=== PATIENT | female | born 1970 | race African-American/Black ===

== ENCOUNTER 2016-11-03 08:25 | Day surgery (SDC) | payer OTHER ==
[~2016-11-03] VITALS: Ht 172.7 cm; Wt 87.2 kg
[~2016-11-03 08:25] MED LIST: ALPRAZOLAM0.25 M2 PO; ALPRAZOLAM0.25 MG PO; AMBIEN10 MG PO; ASPIR-LOW81 MG PO; ASPIR-TRIN325 M1 PO; ASPIRIN81 M1 PO; BENICAR20 MG PO; CATAPRES0.1 MG PO; CLONIDINE HCL0.1 MG PO; DETROL LA4 MG PO; DILAUDID4 MG PO; IMITREX50 MG PO; INDERAL20 MG PO; KEFLEX500 MG PO; LEXAPRO20 MG PO; LOPRESSOR25 MG PO; MEDROL DOSEPAK4 MG PO; METOPROLOL TAR100 MG PO; MICARDIS HCT1 TABLE1 PO; MICARDIS80 MG PO; MINIPRESS2 MG PO; Medrol PO; NEXIUM40 MG PO; NORCO 5/3251 TABLET PO; PRAVACHOL40 MG PO; PRAVASTATIN SOD40 MG PO; PRAZOSIN HCL2 MG PO; PROBIOTIC1 EAC1 PO; PROCTOSOL-HC28.35 GM PR; PROTONIX40 MG PO; PYRIDIUM200 MG PO; ROBAXIN500 MG PO; SAVELLA PO; SAVELLA1 EACH PO; SERTRALINE HCL50 MG PO; TOPAMAX25 MG PO; TOPROL XL50 MG PO; VOLTAREN 1% GE100 GM TP; WELLBUTRIN XL300 MG PO; WELLBUTRIN75 MG PO; XANAX1 MG PO; ZOFRAN8 MG PO; ZOLOFT100 MG PO
[2016-11-03 09:20] VITALS: BP 160/84
[2016-11-03 09:55] LABS: INTERNAL CONTROL VALID? YES
[2016-11-03 13:45] VITALS: BP 137/71
[2016-11-03 16:00] VITALS: BP 140/70
[2016-11-03 19:40] VITALS: BP 159/77
[2016-11-03 23:29] VITALS: BP 154/73
[2016-11-04 03:34] VITALS: BP 145/71
[2016-11-04 04:33] VITALS: BP 153/79
[2016-11-04 05:20] VITALS: BP 153/79
[2016-11-04 07:03] LABS: EOSINOPHIL (%) 0.1 % (0-5); HEMATOCRIT 35.4 % (36.0-46.0); IMMATURE GRANULOCYTE (%) 0.3 % (0.0-0.7); INSTRUMENT ABS NEUTROPHIL CT 6.5 K/uL; LYMPHOCYTE COUNT 1.8 K/uL (1.0-2.8); MCH 26.5 PG (29.0-34.0); MCHC 32.2 G/DL (30.0-36.0); MCV 82.3 FL (83-99); MEAN PLAT.VOLUME 10.5 uM^3 (9.5-12.4); MONOCYTE (%) 7.3 % (3-12); MONOCYTE COUNT 0.7 K/uL (0-0.8); NEUTROPHIL (%) 72.5 % (45-76); NEUTROPHIL COUNT 6.5 K/uL (1.8-6.4); PLATELET COUNT 291 K/uL (156-360); RBC DIS.WIDTH-CV 13.3 % (11.8-14.6); RBC DIS.WIDTH-SD 39.8 % (39-53)
[2016-11-04 07:25] LABS: ANION GAP 7 MEQ/L (2-14); CHLORIDE 102 MEQ/L (99-109); GFR ESTIMATE (CALCULATED) > 59 mL/min/; GLUCOSE 117 mg/dL (70-99); SAMPLE HEMOLYSIS CHECK 0; SAMPLE ICTERIC CHECK 0; SAMPLE LIPEMIA CHECK 0; SODIUM 138 MEQ/L (136-147); UREA NITROGEN (BUN) 10 mg/dL (9-23)
== END 2016-11-04 12:54 | disposition home or self-care (01) ==
LOC: SDC 08:25 → 2SOUTH 12:49 → 2EASTP 12:49
PROVIDERS: Anesthesiology; Obstetrics & Gynecology Gynecology
PROC: 0TJ98ZZ Inspection of Ureter, Via Natural or Artificial Opening Endoscopic (ICD-10-PCS; principal; 2016-11-03)
PROC: 0UTC8ZZ Resection of Cervix, Via Natural or Artificial Opening Endoscopic (ICD-10-PCS; principal; 2016-11-03)
PROC: 0UT5FZZ Resection of Right Fallopian Tube, Via Natural or Artificial Opening With Percutaneous Endoscopic Assistance (ICD-10-PCS; principal; 2016-11-03)
PROC: 0UT9FZZ Resection of Uterus, Via Natural or Artificial Opening With Percutaneous Endoscopic Assistance (ICD-10-PCS; principal; 2016-11-03)
DX: D25.9 Leiomyoma of uterus, unspecified (principal); N93.0 Postcoital and contact bleeding; N94.6 Dysmenorrhea, unspecified; N84.0 Polyp of corpus uteri; N72 Inflammatory disease of cervix uteri; R10.2 Pelvic and perineal pain; E66.09 Other obesity due to excess calories; Z68.30 Body mass index [BMI] 30.0-30.9, adult; Z87.891 Personal history of nicotine dependence; I10 Essential (primary) hypertension; E78.5 Hyperlipidemia, unspecified; F51.9 Sleep disorder not due to a substance or known physiological condition, unspecified; Z82.49 Family history of ischemic heart disease and other diseases of the circulatory system; Z83.3 Family history of diabetes mellitus; Z83.49 Family history of other endocrine, nutritional and metabolic diseases; Z79.82 Long term (current) use of aspirin; Z88.2 Allergy status to sulfonamides; Z88.5 Allergy status to narcotic agent
CPT/HCPCS: 80048; 84703; 85025; 87086; 88302; 88307; 93005; G0378; J0131; J0330; J0690; J1100; J1170; J1200; J1644; J1885; J2250; J2405; J2710; J3010; J7120

== ENCOUNTER 2017-05-01 13:43 | Emergency (ER) | payer OTHER ==
[~2017-05-01] VITALS: Ht 172.7 cm; Wt 89.5 kg
[2017-05-01] MEDS ORDERED: ALPRAZOLAM ER1 MG PO (14:22)
[2017-05-01 14:38] LABS: ADD MIUA? YES; BILIRUBIN NEGATIVE; BLOOD SMALL; COLOR YELLOW ((YELLOW)); GLUCOSE (STRIP) NEGATIVE; KETONES NEGATIVE; LEUKOCYTES MODERATE; NITRITE NEGATIVE; PROTEIN (STRIP) NEGATIVE; SPECIFIC GRAVITY 1.016 (1.000-1.030); UROBILINOGEN 0.2 MG/DL (0.2-1.0)
[2017-05-01 14:41] LABS: HEMATOCRIT 36.3 % (36.0-46.0); MCH 26.4 PG (29.0-34.0); MCHC 33.1 G/DL (30.0-36.0); MCV 79.8 FL (83-99); MEAN PLAT.VOLUME 9.6 uM^3 (9.5-12.4); PLATELET COUNT 243 K/uL (156-360); RBC DIS.WIDTH-CV 13.1 % (11.8-14.6); RBC DIS.WIDTH-SD 37.6 % (39-53); RED BLOOD COUNT 4.55 M/uL (3.80-5.20); WHITE BLOOD COUNT 4.9 K/uL (4.1-10.2)
[2017-05-01 14:50] LABS: CASTS PRESENT /LPF; EPITHELIAL CELLS 1+ /HPF; HYALINE CASTS 0-5 /LPF; MUCUS 1+ /LPF
[2017-05-01 14:50] LABS: CHLORIDE 103 mEq/L (99-109); POTASSIUM 3.4 mEq/L (3.7-5.4); SODIUM 138 mEq/L (136-147)
[2017-05-01 14:52] LABS: GLUCOSE 94 mg/dL (70-99)
[2017-05-01 14:52] LABS: BACTERIA 1+ /HPF; RED BLOOD CELLS 0-5 /HPF (0-5); UCUL ADDED? YES
[2017-05-01 14:53] LABS: ANION GAP 11 MEQ/L (2-14)
[2017-05-01 14:54] LABS: TOTAL BILIRUBIN 0.3 mg/dL (0.0-1.0)
[2017-05-01 14:56] LABS: ALKALINE PHOSPHATASE 61 IU/L (3-129); GFR ESTIMATE (CALCULATED) > 59 mL/min/
[2017-05-01 14:57] LABS: UREA NITROGEN (BUN) 7 mg/dL (9-23)
[2017-05-01] MEDS ORDERED: KEFLEX500 MG PO (16:27)
[2017-05-01] MEDS ORDERED: FLEXERIL10 MG PO (16:36)
[2017-05-01] MEDS ORDERED: NAPROSYN500 MG PO (16:36)
[2017-05-01 16:54] VITALS: BP 192/86
== END 2017-05-01 16:57 | disposition home or self-care (01) ==
LOC: EME 13:43
PROVIDERS: Nurse Practitioner Family
DX: N39.0 Urinary tract infection, site not specified (principal); M25.552 Pain in left hip; Z87.440 Personal history of urinary (tract) infections; I10 Essential (primary) hypertension; Z79.82 Long term (current) use of aspirin; Z87.891 Personal history of nicotine dependence
CPT/HCPCS: 73502; 80053; 81003; 85027; 87086; 99281; 99284

== ENCOUNTER 2018-02-17 13:06 | Emergency (ER) | payer OTHER ==
[~2018-02-17] VITALS: Ht 172.7 cm; Wt 95.8 kg
[~2018-02-17 13:06] MED LIST changes: +ALPRAZOLAM ER1 MG PO; +FLEXERIL10 MG PO; +NAPROSYN500 MG PO
[2018-02-17 14:46] VITALS: BP 155/77
== END 2018-02-17 14:47 | disposition home or self-care (01) ==
LOC: EME 13:06
DX: H10.9 Unspecified conjunctivitis (principal); I10 Essential (primary) hypertension; K21.9 Gastro-esophageal reflux disease without esophagitis; M79.7 Fibromyalgia; F32.9 Major depressive disorder, single episode, unspecified; Z79.82 Long term (current) use of aspirin; Z87.891 Personal history of nicotine dependence; Z87.440 Personal history of urinary (tract) infections; Z98.890 Other specified postprocedural states; Z88.2 Allergy status to sulfonamides; Z88.6 Allergy status to analgesic agent; Z88.5 Allergy status to narcotic agent
CPT/HCPCS: 99281; 99284

== ENCOUNTER 2018-03-09 17:18 | Emergency (ER) | payer OTHER ==
[~2018-03-09] VITALS: Ht 172.7 cm; Wt 94.5 kg
[2018-03-09 18:11] LABS: CHLORIDE 101 mEq/L (99-109); POTASSIUM 2.8 mEq/L (3.7-5.4); SODIUM 139 mEq/L (136-147)
[2018-03-09 18:13] LABS: GLUCOSE 110 mg/dL (70-99)
[2018-03-09 18:16] LABS: HEMATOCRIT 36.6 % (36.0-46.0); HEMOGLOBIN 12.3 G/DL (11.9-15.5); MCH 26.9 PG (29.0-34.0); MCHC 33.6 G/DL (30.0-36.0); MCV 79.9 FL (83-99); PLATELET COUNT 278 K/uL (156-360); RBC DIS.WIDTH-CV 12.9 % (11.8-14.6); RBC DIS.WIDTH-SD 36.9 % (39-53); RED BLOOD COUNT 4.58 M/uL (3.80-5.20)
[2018-03-09 18:17] LABS: CREATININE 0.9 mg/dL (0.6-1.3); GFR ESTIMATE (CALCULATED) > 59 mL/min/
[2018-03-09 18:18] LABS: UREA NITROGEN (BUN) 7 mg/dL (9-23)
[2018-03-09 18:23] LABS: TROP-I INTERPRETATION NEGATIVE; TROPONIN-I < 0.01 ng/mL (0.0-0.30)
[2018-03-09 18:39] LABS: PTT 31.9 SEC (25-37)
[2018-03-09 22:34] VITALS: BP 168/75
== END 2018-03-09 22:35 | disposition home or self-care (01) ==
LOC: EME 17:18
PROVIDERS: Emergency Medicine
DX: R06.02 Shortness of breath (principal); I10 Essential (primary) hypertension; F32.9 Major depressive disorder, single episode, unspecified; K21.9 Gastro-esophageal reflux disease without esophagitis; M79.7 Fibromyalgia; Z87.440 Personal history of urinary (tract) infections; Z79.82 Long term (current) use of aspirin; Z88.6 Allergy status to analgesic agent; Z88.2 Allergy status to sulfonamides; Z87.891 Personal history of nicotine dependence
CPT/HCPCS: 71046; 71275; 80048; 83880; 84484; 85027; 85610; 85730; 93005; 99281; 99285; J1200; J2930; J3480; J7040